=== PATIENT | male | born 1960 | race American Indian/Alaskan Native ===

== ENCOUNTER 2021-09-15 14:39 | Emergency (ER) | payer SELFPAY ==
[2021-09-15] MEDS ORDERED: fentaNYL 100 MCG/2 ML INJ IV ONE (16:00)
[2021-09-15 16:12] LABS: Hematocrit 30.6 % (35.5-45.6); Mean Corpuscular HGB Conc 33 % (32-34); Mean Corpuscular Volume 100 fl (84-94); Platelet Count 443 K/mm3 (140-440); Red Blood Count 3.06 M/mm3 (3.65-5.03)
[2021-09-15 16:26] LABS: Calcium 9.6 mg/dL (8.4-10.2)
[2021-09-15] MEDS ORDERED: SODIUM CHLORIDE 0.9% 1000 ML 1,000 ML IV ONE (16:40)
--- NOTE | 2021-09-15 16:53 | Emergency Department Report ---
ED General Adult HPI - General Chief complaint: GI Bleed Stated complaint: SPITTING UP BLOOD Time Seen by Provider: 09/15/21 14:48 Source: EMS Mode of arrival: Stretcher Limitations: No Limitations - History of Present Illness Initial comments: Patient presents by ambulance secondary to spitting up blood. He requested to go to [place] and EMS brought him here. 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 However he had been referred to palliative care. He is supposed to have a biopsy done due to a new oral lesion. Patient has been bleeding from his tongue for the last 1 to 2 days. He does not feel dizzy or lightheaded. There is no bleeding from other sites. He wanted to go to [place]. That is where his oncologic care has occurred. Patient has not anticoagulated. Severity scale (0 -10): 8 - Related Data Allergies Allergy/AdvReac Type Severity Reaction Status Date / Time No Known Allergies Allergy Verified 09/15/21 15:23 ED Review of Systems ROS: Stated complaint: SPITTING UP BLOOD Other details as noted in HPI Comment: All other systems reviewed and negative Constitutional: denies: fever Eyes: denies: vision change ENT: as per HPI Respiratory: denies: cough Cardiovascular: denies: chest pain Endocrine: denies: unexplained weight loss Gastrointestinal: denies: hematemesis, melena Genitourinary: denies: hematuria Musculoskeletal: denies: back pain Skin: denies: rash Neurological: denies: headache Hematological/Lymphatic: denies: easy bruising ED Past Medical Hx - Past Medical History Previous Medical History?: Yes Hx of Cancer: Yes (throat) - Family History Family history: no significant - Social History Smoking Status: Former Smoker ED Physical Exam - General Limitations: No Limitations, Other (Pulse ox noted and normal) General appearance: alert, in no apparent distress, cachectic - Head Head exam: Present: atraumatic, normocephalic - Eye Eye exam: Present: normal appearance, EOMI - ENT ENT exam: Present: other (Slow venous bleeding noted from an oral lesion on the left-hand side concerning for cancer) - Neck Neck exam: Present: normal inspection. Absent: meningismus - Respiratory Respiratory exam: Present: normal lung sounds bilaterally. Absent: respiratory distress - Cardiovascular Cardiovascular Exam: Present: regular rate, normal rhythm, tachycardia - GI/Abdominal GI/Abdominal exam: Present: soft. Absent: tenderness - Extremities Exam Extremities exam: Present: normal capillary refill - Back Exam Back exam: Absent: CVA tenderness (R), CVA tenderness (L) - Neurological Exam Neurological exam: Present: alert, oriented X3, CN II-XII intact. Absent: motor sensory deficit - Psychiatric Psychiatric exam: Present: normal affect, normal mood - Skin Skin exam: Present: warm, dry ED Course Vital Signs 09/15/21 14:41 Temperature 97.0 F L Pulse Rate 115 H Respiratory 16 Rate Blood Pressure 115/78 [Right] O2 Sat by Pulse 98 Oximetry - Reevaluation(s) Reevaluation #1: 09/15/21 16:52 EMS had been met upon arrival. Labs have been ordered. They have been reviewed and IV fluids were ordered. There are no old records at this facility to review. Reevaluation #2: 09/15/21 18:39 Bleeding has been controlled. Labs have been reviewed. Patient was discharged. ED Medical Decision Making - Lab Data Result diagrams: 09/15/21 15:34 09/15/21 15:34 - Medical Decision Making Patient presented with oropharyngeal bleeding from what appears to be some sort of recurrence of laryngeal or throat cancer. He has a biopsy scheduled later this week. There is no active bleeding at this time. It has been controlled. He is not bleeding from other sites. He does not have any significant blood loss. Hemoglobin is 10. Patient would like to follow-up with his oncologist and keep his appointment for biopsy. There is no indication for admission at this time. Critical Care Time: No Critical care attestation.: If time is entered above; I have spent that time in minutes in the direct care of this critically ill patient, excluding procedure time. ED Disposition Clinical Impression: Oropharyngeal bleeding Disposition: HOME / SELF CARE / HOMELESS Is pt being admited?: No Condition: Stable Additional Instructions: Follow-up with your oncologist at [place]. Return for problems. Referrals: PRIMARY CARE, [Primary Care Provider] - 3-5 Days Forms: Accompanied Note
[2021-09-15] MEDS ORDERED: MORPHINE 4 MG/1 ML INJ IV ONE (17:19)
[2021-09-15] MEDS ORDERED: TRANEXAMIC ACID 500 MG in SODIUM CHLORIDE 0.9% 100 ML IV NR (18:00)
[2021-09-15 19:07] VITALS: BP 128/89
== END 2021-09-15 20:08 | disposition home or self-care (01) ==
LOC: ED 14:39
DX: R04.1 Hemorrhage from throat (principal); Z85.21 Personal history of malignant neoplasm of larynx; Z87.891 Personal history of nicotine dependence
CPT/HCPCS: 36415; 80048; 85027; 96361; 96374; 96375; 99283; J2270; J3010; J7030; J3490; Q0162